=== PATIENT | male | born 1955 | race Hispanic/Latino ===

== ENCOUNTER 2023-11-01 15:14 | Emergency (ER) | payer MEDICARE, BC ==
[~2023-11-01] VITALS: Ht 170.2 cm; Wt 88.5 kg
[2023-11-01] MEDS ORDERED: GLIPIZIDE10 MG PO (16:52)
[2023-11-01] MEDS ORDERED: ZESTRIL10 MG PO (16:52)
[2023-11-01] MEDS ORDERED: PIOGLITAZONE HC30 MG PO (16:53)
[2023-11-01] MEDS ORDERED: METFORMIN HCL1000 MG PO (16:53)
[2023-11-01] MEDS ORDERED: CRESTOR40 MG NG (16:53)
[2023-11-01 17:23] LABS: BILIRUBIN, URINE NEGATIVE (negative); BLOOD/HGB, URINE NEGATIVE (Negative); KETONE, URINE NEGATIVE (Negative); LEUK ESTERASE, URINE NEGATIVE (negative); NITRITE, URINE NEGATIVE (negative)
[2023-11-01 21:09] LABS: BASOPHILS 0.3 % (0-2); HEMOGLOBIN 13.2 g/dL (12.0-18.0); LYMPHOCYTES 11.1 % (24-44); MCH 29.7 (27-36); MCHC 33.8 g/dl (30-36); MCV 87.9 fl (81-99); MONOCYTES 5.4 % (0-12); NEUTROPHILS 82.2 % (39-80); PLATELET COUNT 213 K/uL (140-440); RBC 4.44 M/ul (4.3-5.7); RDW 13.7 (10.5-15.0)
[2023-11-01 21:24] LABS: ALBUMIN 3.9 g/dL (3.4-5.0); ALBUMIN/GLOBULIN RATIO 0.98 (1.1-2.4); ANION GAP 11.9 (7-21); BILIRUBIN, TOTAL 0.5 ng/dL (0.2-1.0); BUN/CREATININE RATIO 7.4 (6.0-28.6); CALCIUM 9.3 mg/dL (8.5-10.1); CREATININE, SERUM 1.62 mg/dL (0.70-1.30); POTASSIUM 3.9 mmol/L (3.5-5.1); PROTEIN, TOTAL 7.9 g/dL (6.4-8.2)
[2023-11-01] MEDS ORDERED: LISINOPRIL-HCT1 EACH PO (23:23)
[2023-11-01] MEDS ORDERED: FLOMAX0.4 MG PO (23:29)
[2023-11-01 23:57] VITALS: BP 184/67
== END 2023-11-01 23:57 | disposition home or self-care (01) ==
LOC: ED 15:14
PROVIDERS: Emergency Medicine; Family Medicine
DX: I10 Essential (primary) hypertension (principal); N40.1 Benign prostatic hyperplasia with lower urinary tract symptoms; N13.8 Other obstructive and reflux uropathy; E11.9 Type 2 diabetes mellitus without complications; E78.5 Hyperlipidemia, unspecified; Z79.899 Other long term (current) drug therapy; Z79.84 Long term (current) use of oral hypoglycemic drugs
CPT/HCPCS: 36415; 74177; 80053; 81003; 85025; A9270; J0360; J1170; J2270; J7121

== ENCOUNTER 2023-11-04 20:04 | Emergency (ER) | payer BC, MEDICARE ==
[~2023-11-04] VITALS: Ht 170.2 cm; Wt 88.5 kg
[~2023-11-04 20:04] MED LIST: CRESTOR40 MG NG; FLOMAX0.4 MG PO; GLIPIZIDE10 MG PO; LISINOPRIL-HCT1 EACH PO; METFORMIN HCL1000 MG PO; PIOGLITAZONE HC30 MG PO; ZESTRIL10 MG PO
--- OUTSIDE RECORDS SUMMARY | 2023-11-04 20:12 | XMS ---
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 Jany has no Care Guidelines for this patient. [place] VISIT COUNT (12 MO.) [facility] TOTAL 2 NOTE: Visits indicate total known visits. ED/C VISIT TRACKING (12 MO.) [facility] COMPLAINT: - URINE PROBLEM 11/01/2023 15:[address] 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
[2023-11-04 22:00] VITALS: BP 138/62
== END 2023-11-04 22:02 | disposition home or self-care (01) ==
LOC: ED 20:04
DX: N40.1 Benign prostatic hyperplasia with lower urinary tract symptoms (principal); R33.8 Other retention of urine; I10 Essential (primary) hypertension; E11.9 Type 2 diabetes mellitus without complications; E78.5 Hyperlipidemia, unspecified; Z79.899 Other long term (current) drug therapy; Z79.84 Long term (current) use of oral hypoglycemic drugs
CPT/HCPCS: 99283

== ENCOUNTER 2023-11-20 11:39 | Emergency (ER) | payer MEDICARE, BC ==
[~2023-11-20] VITALS: Ht 170.2 cm; Wt 88.5 kg
[2023-11-20 12:29] VITALS: BP 143/56
--- OUTSIDE RECORDS SUMMARY | 2023-11-20 12:55 | XMS ---
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 Jany has no Care Guidelines for this patient. [place] [facility] NOTE: Visits indicate total known visits. ED/C VISIT TRACKING (12 MO.) 11/20/2023 11:40 [facility] [place] TYPE: Emergency COMPLAINT: - URINATING BLOOD 11/04/2023 20:05 [facility] [place] TYPE: Emergency COMPLAINT: - URINE PROBLEM DIAGNOSES: - Benign prostatic hyperplasia with lower urinary tract symptoms - Essential (primary) hypertension - Hyperlipidemia, unspecified - [facility] (current) use of oral hypoglycemic drugs - Other prison (current) drug therapy - Other retention of urine - Retention of urine, unspecified - Type 2 diabetes mellitus without complications 11/01/2023 15:16 [facility] [place] TYPE: Emergency COMPLAINT: - HIGH B/P, FREQUENT URINATING DIAGNOSES: - Benign prostatic hyperplasia with lower urinary tract symptoms - Essential (primary) hypertension - Hyperlipidemia, unspecified - [facility] (current) use of oral hypoglycemic drugs - Other medical terminologist (current) drug therapy - Other obstructive and reflux uropathy - Type 2 diabetes mellitus without complications INPATIENT VISIT TRACKING (12 MO.) No inpatient visits to display in this time frame [email or web address]
== END 2023-11-20 12:30 | disposition home or self-care (01) ==
LOC: ED 11:39
DX: T83.83XA Hemorrhage due to genitourinary prosthetic devices, implants and grafts, initial encounter (principal); N48.89 Other specified disorders of penis; I10 Essential (primary) hypertension; E11.9 Type 2 diabetes mellitus without complications; Y73.8 Miscellaneous gastroenterology and urology devices associated with adverse incidents, not elsewhere classified; Z79.899 Other long term (current) drug therapy; Z79.84 Long term (current) use of oral hypoglycemic drugs
CPT/HCPCS: 99283